=== PATIENT | male | born 1940 | race Caucasian/White ===

== ENCOUNTER → 2018-05-09 | Outpatient (CLI) | payer OTHER ==
[~2018-05-09] VITALS: Ht 177.8 cm; Wt 72.6 kg
[~2018-05-09] MED LIST: FLONASE 0.05%50 MCG NASAL; OMEPRAZOLE 20 M20 M1 PO; PAXIL10 MG PO
[2018-05-09 09:43] VITALS: BP 164/96
[2018-05-09 09:51] LABS: HEMATOCRIT 46.3 % (42.0-52.0); HEMOGLOBIN 15.3 gm/dL (14.0-18.0); MCH 30.6 pg (26.0-34.0); MCHC 33.1 g/dL (28.0-37.0); MCV 92.6 fL (80.0-100.0); MPV 9.5 fl. (7.2-11.1); RDW-CV 13.5 % (10.5-14.5); WBC 5.7 thou/uL (4.0-11.0)
[2018-05-09 10:11] LABS: ANION GAP 4 mmol/L (7-16); BUN 14 mg/dL (7-18); CALCIUM 8.4 mg/dL (8.5-10.1); CHLORIDE 105 mmol/L (98-107); CO2 30 mmol/L (21-32); GLUCOSE 89 mg/dL (70-99); POTASSIUM 3.8 mmol/L (3.5-5.1); SODIUM 139 mmol/L (136-145)
[2018-05-09 10:15] LABS: ALBUMIN 3.6 g/dL (3.4-5.0); ALKALINE PHOSPHATASE 92 U/L (46-116); CHOLESTEROL 126 mg/dL (<200); HDL CHOLESTEROL 60 mg/dL (>40); LDL CHOLESTEROL 52 mg/dL (<100); SGOT 18 U/L (15-37); SGPT 16 U/L (30-65); TC:HDL 2.1 Ratio (Not establshd); TOTAL BILIRUBIN 0.7 mg/dL (<0.1-1.0); TOTAL PROTEIN 7.2 g/dL (6.4-8.2); TRIGLYCERIDE 72 mg/dL (<150); VLDL 14 mg/dL (<40)
[2018-05-09 10:17] LABS: APTT 30.1 Seconds (25.0-31.3); PROTIME 10.7 Seconds (9.20-11.50)
[2018-05-09 10:21] LABS: SERUM ASSESSMENT Clear
--- NOTE | 2018-05-09 10:58 | EKG ---
[place] [address] ELECTROCARDIOGRAM REPORT Name: CHINTAN PAN Room: [facility]#: [id number] Admission: 05/09/18 Attend Phys: Soham Kelly MD Discharge: Date of : 36 Report #: [id number] THIS REPORT FOR: //name// [facility] Test Date: 2018-05-09 Test Time: 09:23:49 Pat Name: CHINTAN PAN Department: Room: Gender: M Provider Relations Specialist: : 1940 Requested By: Rai Wallace Order Number: [id number] Steph MD: Rai Wallace Measurements Intervals [place] Rate: 60 P: 24 AL: 193 QRS: -8 QRSD: 107 T: 52 QT: 462 QTc: 462 Interpretive Statements Sinus rhythm Ventricular trigeminy Minimal ST depression, lateral leads No previous ECG available for comparison Electronically Signed On 05-09-2018 10:58:24 CDT by Rai Wallace [email or web address] <ELECTRONICALLY SIGNED> By: Rai Wallace MD, [facility] 05/09/18 1058 0923 2 Rai Wallace MD, FACC /EPI
[2018-05-09 12:00] VITALS: BP 134/74
[2018-05-09 12:15] VITALS: BP 142/78
[2018-05-09 13:06] VITALS: BP 131/77
--- NOTE | 2018-05-09 13:28 | CARD ---
[address] [address] CARDIAC CATH REPORT Name: CHINTAN PAN Reginald Room: [facility]#: [id number] Admission: 05/09/18 Attend Phys: Soham Kelly MD Discharge: Date of : 38 Report #: [id number] THIS REPORT FOR: //name// APPROVED REPORT Study performed: 05/09/2018 10:39:40 Patient Details Patient Status: Out-Patient Room #: The patient is a 78 year-old male Event Personnel Rai Wallace String Top Sealer, Nika Joshi RN [employer]anner, Solange Patricia RTR Monitor, Carlo Spicer (R) Scrub Procedures Performed Art Access - R femoral artery* Left Heart Cath w/or w/o Coronaries [facility] Indication Positive stress test Risk Factors Hypercholesterolemia Procedure Narrative The patient was brought electively to the Cardiac Catheterization Laboratory and was prepped and draped in a sterile manner. The right femoral was infiltrated with 2% Lidocaine subcutaneous anesthesia. A G[place]den 6 FR sheath was inserted into the right femoral artery. Coronary angiography was performed using coronary diagnostic catheters. The right coronary system was accessed and visualized with a Diagnostic JR4 6Fr catheter. The left coronary system was accessed and visualized with a Diagnostic JL5 6fr catheter. The left ventricle was accessed and visualized with a Diagnostic 6fr angled pigtail catheter. Left ventricular/Aortic Valve gradient assessed via catheter pullback. Left ventriculogram was performed in BURKETT projection. Pre-demployment femoral angiogram was performed . Closure device was deployed with a Fr Mynx 6Fr/7Fr. The patient tolerated the procedure well and there were no complications associated with the procedure. There was no hematoma. Intraoperative Conscious Sedation Sedation start time: 11:13 Case end Time: 11:45 [place] [address] CARDIAC CATH REPORT Name: CHINTAN PAN Regianld Room: [facility]#: [id number] Admission: 05/09/18 Attend Phys: Soham Kelly MD Discharge: Date of : 36 Report #: [id number] Fentanyl 25 mcg Versed 2 mg Fluoro Time: 4.7 minutes Dose: DAP 90599 cGycm2 1031 mGy Contrast Type and Amount: Visipaque 190 ml Coronary Angiography The patient's coronary anatomy is right dominant. Diagnostic Cath Left Main Very short with 0% narrowing LAD 30% proximal narrowing Circumflex Nondominant vessel with 40% mid vessel narrowing Right Coronary Dominant vessel tandem 30 and 40% distal narrowings Left Ventriculography The left ventricle is normal in size with contractility. The left ventricular ejection fraction is estimated to be 45%. Left ventricular wall motion abnormalities are not present. There is no mitral insufficiency. Hemodynamics The aortic pressure is 114/61 mmHg with a mean of 71 mmHg. The left ventricular pressure is 128/4 mmHg with a mean of mmHg. The left ventricular end diastolic pressure is 8 mmHg. Pullback from the left ventricle to the aorta revealed no gradient across the aortic valve. Conclusion #1 modest coronary arteries characterized by the following: A 30% proximal LAD narrowing B 40% narrowing of the midportion of the nondominant circumflex C dominant right coronary artery with tandem 30 and 40% distal narrowings #2 mild reduction in global left ventricular systolic function, estimated ejection fraction being 45% with mild diffuse hypokinesis noted #3 normal left-sided [place] [address] CARDIAC CATH REPORT Name: CHINTAN PAN Room: [facility]#: [id number] Admission: 05/09/18 Attend Phys: Soham Kelly MD Discharge: Date of : 36 Report #: [id number] Cardiac Risk Reduction Program Medical Therapy Diagnostic Cath Approved by: Rai Wallace MD Date/Time: 05/09/2018 13:27:29 <ELECTRONICALLY SIGNED> By: Rai Wallace MD, [facility] 05/09/18 1327 1327 1327Rai Wallace MD, FAC /INF
--- NOTE | 2018-05-09 13:57 | H ---
[address] [address] HISTORY AND PHYSICAL Name: CHINTAN PAN Room: [facility]#: [id number] Admission: 05/09/18 Attend Phys: Soham Kelly MD Discharge: Date of : 36 Report #: [id number] THIS REPORT FOR: //name// CC: Soham Stephens DATE OF SERVICE: 05/09/2018 HISTORY OF PRESENT ILLNESS: The patient is a very pleasant 78-year-old male who lives predominantly in the [facility], but returns to the [facility] for his healthcare. Recently, he has continued to note shortness of breath and was evaluated by Dr. Kelly for the same. The patient has a history of prior cardiac catheterization without significant stenosis noted, done in [place]. The patient's resting EKG revealed some abnormalities, suggesting antecedent scar. He denies chest, neck, jaw or arm discomfort with exertion. There is some dyspnea, as noted above, with activity. The patient denies diabetes, hypercholesterolemia or cigarette smoking. MEDICATIONS: Prior medicines have included omeprazole and paroxetine. FAMILY HISTORY: Remarkable for premature coronary disease. SOCIAL HISTORY: The patient is . He is a nonsmoker. REVIEW OF SYSTEMS: Remarkable for the following, pulmonary notes mild dyspnea on exertion. PHYSICAL EXAMINATION: GENERAL: Demonstrates an elderly male, in no acute distress. VITAL SIGNS: Blood pressure 120/70, pulse rate is 74 and respirations are 18 per minute. NECK: Jugular venous pressure is normal, with the carotids being 1 to 2+. CHEST EXAMINATION: Clear. CARDIAC EXAMINATION: Reveals normal first and second heart sounds, without murmurs or gallops. ABDOMEN: Soft. EXTREMITIES: Without edema with intact femoral, pedal and radial pulses. DIAGNOSTIC DATA: Nuclear stress test suggested inducible inferoseptal ischemia with mild reduction in global left ventricular systolic function. IMPRESSION: 1. [place] [address] HISTORY AND PHYSICAL Name: CHINTAN PAN Room: [facility]#: [id number] Admission: 05/09/18 Attend Phys: Soham Kelly MD Discharge: Date of : 38 Report #: [id number] 2. Abnormal nuclear stress test. 3. History of reflux esophagitis. RECOMMENDATIONS: Given the aforementioned clinical scenario, after discussion with Dr. Kelly, we will plan to proceed with cardiac catheterization to define the magnitude of coronary artery disease and prospects for subsequent therapeutic modification. <ELECTRONICALLY SIGNED> By: Rai Wallace MD, FACC 05/09/18 1357 1202 1222Rai Wallace MD, FACC /nt
--- NOTE | 2018-05-12 14:28 | NUR ---
Attempted to make a follow up phone call, number was not a working number.
== END | disposition home or self-care (01) ==
LOC: M.CL 08:37
PROVIDERS: Internal Medicine
DX: I25.10 Atherosclerotic heart disease of native coronary artery without angina pectoris (principal); M81.0 Age-related osteoporosis without current pathological fracture; Z98.890 Other specified postprocedural states; Z79.899 Other long term (current) drug therapy; Z87.19 Personal history of other diseases of the digestive system; Z88.8 Allergy status to other drugs, medicaments and biological substances; Z79.01 Long term (current) use of anticoagulants

== ENCOUNTER 2018-12-21 12:36 | Inpatient (IN) | payer OTHER ==
[~2018-12-21] VITALS: Ht 177.8 cm; Wt 70.3 kg
--- NOTE | ~2018-12-21 | CON ---
[address] [address] CONSULTATION Name: CHINTAN PAN Reginald Room: [address] [facility]#: [id number] Admission: 12/21/18 Attend Phys: Chrystal Buchanan MD Discharge: Date of : 38 Report #: [id number] THIS REPORT FOR: //name// CC: Maurice Stephens MD DICTATED BY: Kenyatta NAVARRO DATE OF SERVICE: 12/22/2018 Please note at the time of this dictation, the patient was seen and physically examined by myself. REASON FOR CONSULTATION: Abdominal pain and diverticulitis. HISTORY OF PRESENT ILLNESS: This is an 78-year-old male who presented to the Emergency Room with having increasing right flank pain, which had progressively been getting worse over the last 24 hours. He has been having intermittent right flank pain off and on, but he also states that he is also having some left lower quadrant tenderness noted to palpation. He denies any constipation that his bowels normally move daily, although since he has been here, he has had a little bit of loose stools. The patient did have colonoscopy and EGD back in 2016 at [facility]. He states EGD had a Schatzki's ring he was told and colonoscopy had colon polyps, does not recall what kind and diverticulosis. The patient typically resides in the [facility], which he has done so for the last 5 years with his who is going to school to be an RN and he comes back here in the summertime to visit his family in the area. Currently, he denies any nausea or vomiting. His pain is improved and his bowels are moving. ALLERGIES: LIDOCAINE, MORPHINE AND GLUTEN. MEDICATIONS: From home include omeprazole, Wellbutrin, Altace and Centrum Ultra. PAST MEDICAL HISTORY: Acid reflux, hernia, Schatzki's ring, osteoporosis, history of celiac disease. PAST SURGICAL HISTORY: Tonsil and adenoidectomy, appendectomy, hip pinned, cholecystectomy, hemorrhoidectomy, cataracts. FAMILY HISTORY: Negative for any GI or female cancers. SOCIAL HISTORY: Negative for any alcohol, tobacco [place] [address] CONSULTATION Name: CHINTAN PAN Room: [address] IN [facility]#: [id number] Admission: 12/21/18 Attend Phys: Crhystal Buchanan MD Discharge: Date of : 36 Report #: [id number] REVIEW OF SYSTEMS: Twelve-point review of systems is essentially negative except what is mentioned in the HPI. PHYSICAL EXAMINATION: VITAL SIGNS: Temperature 36.4, pulse 74, respirations 16, blood pressure 113/72. HEART: Regular rate and rhythm. LUNGS: Clear. ABDOMEN: Soft, positive bowel sounds in all 4 quadrants with some slight tenderness in the left lower quadrant and he does have some CVA tenderness on the right. LABORATORY DATA: Hemoglobin 12.3, white count is 5.2, platelets is 142. GFR is 91. CT shows pericolonic fat stranding in the mid sigmoid. He has got bilateral nephrolithiasis, one in the mid right urethral and moderate stool noted throughout. IMPRESSION: 1. Abdominal pain. 2. Diverticulitis. 3. Thrombocytopenia. 4. Urethral calculi. PLAN: 1. Cipro, Flagyl, continue. He will need upon discharge. 2. We will obtain records from [facility]. 3. Low residue diet. Thank you for allowing us to participate in this patient's care. Please do not hesitate to call with any questions in regard to this consult. By: 1010 [id number] Razo MD /nt
[2018-12-21 12:49] VITALS: BP 133/83
[2018-12-21] MEDS ORDERED: CENTRUM SILVER1 EAC2 PO (12:53)
[2018-12-21] MEDS ORDERED: OMEPRAZOLE40 MG PO (12:53)
[2018-12-21] MEDS ORDERED: ALTACE5 MG PO (12:53)
[2018-12-21] MEDS ORDERED: WELLBUTRIN XL150 MG PO (12:53)
[2018-12-21 13:23] LABS: ABSOLUTE BASOPHILS 0.1 thou/uL (0.0-0.2); ABSOLUTE EOSINOPHILS 0.1 thou/uL (0.0-0.7); ABSOLUTE LYMPHOCYTES 0.4 thou/uL (0.8-5.3); ABSOLUTE MONOCYTES 0.8 thou/uL (0.0-1.2); ABSOLUTE NEUTROPHILS 6.4 thou/uL (1.6-8.1); BASOPHILS 1.6 %; EOSINOPHILS 0.9 %; HEMATOCRIT 42.2 % (42.0-52.0); HEMOGLOBIN 14.3 gm/dL (14.0-18.0); LYMPHOCYTES 5.4 %; MCHC 33.9 g/dL (28.0-37.0); MCV 91.5 fL (80.0-100.0); MONOCYTES 10.1 %; MPV 9.2 fl. (7.2-11.1); NUCLEATED RBCS 0 /100WBC; PLATELET COUNT* 174 thou/uL (150-400); RBC 4.62 mil/uL (4.50-6.00); RDW-CV 13.3 % (10.5-14.5); WBC 7.9 thou/uL (4.0-11.0)
[2018-12-21 13:27] LABS: URINE BILIRUBIN NEGATIVE (Negative); URINE BLOOD NEGATIVE (Negative); URINE CLARITY CLEAR; URINE COLOR YELLOW; URINE GLUCOSE-RANDOM NEGATIVE (Negative); URINE KETONES TRACE (Negative); URINE LEUKOCYTES-REFLEX NEGATIVE (Negative); URINE NITRITE-REFLEX NEGATIVE (Negative); URINE PROTEIN NEGATIVE (Negative); URINE SPECIFIC GRAVITY 1.015 (1.005-1.030); URINE UROBILINOGEN 0.2 E.U./dl (0.2-1.0)
[2018-12-21 13:31] LABS: CALCIUM 8.4 mg/dL (8.5-10.1); CREATININE 1.3 mg/dL (0.6-1.3); POTASSIUM 4.3 mmol/L (3.5-5.1)
[2018-12-21 13:35] LABS: ALBUMIN 3.2 g/dL (3.4-5.0); TOTAL BILIRUBIN 1.1 mg/dL (<0.1-1.0); TOTAL PROTEIN 6.7 g/dL (6.4-8.2)
--- NOTE | 2018-12-21 14:13 | NUR ---
PT REQUESTED THAT THIS NURSE CONTACT HIS DAUGHTER, KARMEN AT [phone] AND ANSWER HER QUESTIONS PERTAINING TO HIS PLAN OF CARE. KARMEN WAS CALLED AND PLAN OF CARE DISCUSSED PER PATIENT'S REQUEST.
[2018-12-21 15:55] VITALS: BP 124/73
[2018-12-21 17:23] VITALS: BP 117/77
--- NOTE | 2018-12-21 18:14 | NUR ---
PATIENT ARRIVED TO UNIT AT APPROX 1500. ALERT AND ORIENTED X4. ADMISSION HISTORY AND ASSESSMENT COMPLETED AND CHARTED. VSS ON ROOM AIR. PAIN RATED AT A 2 UPON ARRIVAL ASSESSMENT. PATIENT ORIENTED TO ROOM AND UNIT, INSTRUCTED TO CALL FOR STAND BY ASSIST WHEN NEEDING TO GET UP BECAUSE FENTANYL MADE HIM FEEL DIZZY AND NEAUSEOUS IN THE ED. PATIENT COMMUNICATED UNDESTANDING OF THIS AND AGREED THAT HE DID NOT WANT TO GET UP ALONE. FLUIDS INFUSED ORDERED. HOURLY ROUNDS COMPLETED. CALL LIGHT IN REACH. NURSING WILL CONTINUE TO MONITOR.
[2018-12-21 21:30] VITALS: BP 117/66
[2018-12-22 04:36] LABS: HEMATOCRIT 36.9 % (42.0-52.0); MCH 30.6 pg (26.0-34.0); MCHC 33.4 g/dL (28.0-37.0); MCV 91.6 fL (80.0-100.0); MPV 9.4 fl. (7.2-11.1); RBC 4.03 mil/uL (4.50-6.00); RDW-CV 13.3 % (10.5-14.5); WBC 5.2 thou/uL (4.0-11.0)
[2018-12-22 04:42] LABS: HEMOGLOBIN 12.3 gm/dL (14.0-18.0)
[2018-12-22 04:45] LABS: ALBUMIN 2.6 g/dL (3.4-5.0); CALCIUM 7.7 mg/dL (8.5-10.1); CREATININE 1.3 mg/dL (0.6-1.3); MAGNESIUM 1.9 mg/dL (1.8-2.4); POTASSIUM 4.2 mmol/L (3.5-5.1); TOTAL BILIRUBIN 0.9 mg/dL (<0.1-1.0); TOTAL PROTEIN 5.5 g/dL (6.4-8.2)
--- NOTE | 2018-12-22 05:57 | NUR ---
PT REMAINED ALERT AND ORIENTED. VITALS STABLE RA. IV ANTIBIOTICS GIVEN ORDERED. ZOFRAN PROVIEDED FOR NAUSEA. PT REPORTED ABDOMINAL DISCOMFORT/ PRESSURE BUT DECLINED PAIN MEDICATION. NPO AT MIDNIGHT. WILL CONTINUE TO MONITOR.
[2018-12-22 08:00] VITALS: BP 113/72
--- NOTE | 2018-12-22 15:43 | NUR ---
PT.ALERT AND ORIENTED. HE WAS IN BED. NURSING SAID HE GETS UP AD MARK. HE DOES NOT USE ANY DME. HE SAID HE WAS . HE AND LIVE IN THE [facility] BUT COME [place] THEY STAY WITH THEIR DAUGHTER IN [place] WHEN HERE. HE DOES NOT FEEL HE WILL HAVE ANY DISCHARGE NEEDS AT THIS ITNY.
[2018-12-22 17:36] VITALS: BP 127/76
--- NOTE | 2018-12-22 18:42 | NUR ---
PT A&Ox4. VITALS STABLE. NEW IV PLACED IN L FA, PATENT. STARTED AFTERNOON DOSE OF IV CIPRO AND PT GOT A RASH AT AND AROUND IV SITE. CIPRO STOPPED, NEW IV TUBING PLACED ON FLUIDS AND VEIN FLUSHED. RASH WENT AWAY AFTER FLUSHING. CIPRO DC AND AUGMENTIN STARTED PER [place]. UP AD MARK. HARD OF HEARING. PAIN CONTROLLED WITH TORADOL. NAUSEA CONTROLLED WITH SCOPLIMINE PATCH. CALL LIGHT WITHIN REACH. WILL CONTINUE TO MONITOR.
[2018-12-22 21:00] VITALS: BP 121/72
--- NOTE | 2018-12-23 06:46 | NUR ---
PT REMAINED ALERT AND ORIENTED. VITALS STABLE RA. IV/PO ANTIBIOTIC GIVEN ORDERED. PT STATED DISCOMFORT BUT DECLINED OFFER OF PAIN MEDICATION. HOURLY ROUNDING COMPLETED. WILL CONTINUE TO MONITOR.
[2018-12-23 07:40] VITALS: BP 117/76
[2018-12-23] MEDS ORDERED: METRONIDAZOLE500 M4 PO (09:47)
[2018-12-23] MEDS ORDERED: AUGMENTIN 875-1 EACH PO (09:47)
[2018-12-23] MEDS ORDERED: TRANSDERM-SCOP1 EACH TRANSDERM (09:47)
[2018-12-23] MEDS ORDERED: FLOMAX0.4 MG PO (09:47)
[2018-12-23] MEDS ORDERED: ACETAMINOPHEN325 M1 PO (09:47)
[2018-12-23 10:08] VITALS: BP 117/76
--- NOTE | 2018-12-23 11:34 | NUR ---
ASSUMED CARE OF PATIENT AT APPROX 0730. ALERT AND ORIENTED X4. NO COMPLAINTS OF PAIN, NAUSEA, OR SOA. FLUIDS INFUSED ORDERED. ANTIBIOTICS TRANSITIONED TO ORAL. PATIENT DISCHARGED AT 1115 WITH ALL PERSONAL BELONGINGS, PRESCRIPTIONS AND DISCHARGE INFORMATION.
== END 2018-12-23 11:15 | disposition home or self-care (01) | DRG 392 ==
LOC: M.ERS 12:36 → M.TBA-ER 14:11 → M.ORTHSURG 14:11
PROVIDERS: Nurse Practitioner Family; ADMIT Internal Medicine
DX: K57.32 Diverticulitis of large intestine without perforation or abscess without bleeding (principal); N13.2 Hydronephrosis with renal and ureteral calculous obstruction; E44.1 Mild protein-calorie malnutrition; I42.8 Other cardiomyopathies; I25.10 Atherosclerotic heart disease of native coronary artery without angina pectoris; N18.3 Chronic kidney disease, stage 3 (moderate); D69.6 Thrombocytopenia, unspecified; M81.0 Age-related osteoporosis without current pathological fracture; K22.2 Esophageal obstruction; Z79.899 Other long term (current) drug therapy; Z88.8 Allergy status to other drugs, medicaments and biological substances; Z88.4 Allergy status to anesthetic agent; Z68.22 Body mass index [BMI] 22.0-22.9, adult; Z91.041 Radiographic dye allergy status; Z90.49 Acquired absence of other specified parts of digestive tract; Z88.5 Allergy status to narcotic agent